=== PATIENT | male | born 1975 | race Caucasian/White ===

== ENCOUNTER 2017-05-28 06:18 | Emergency (ER) | payer OTHER ==
[~2017-05-28] VITALS: Ht 177.8 cm; Wt 104.3 kg
[2017-05-28 06:26] VITALS: BP 177/98
[2017-05-28] MEDS ORDERED: 0.9 % SODIUM CHLORIDE 10 ML DISP.SYRIN. IV PRN (06:45)
[2017-05-28] MEDS ORDERED: ONDANSETRON PF 4 MG/2 ML VIAL. IV ONE (06:45)
[2017-05-28] MEDS ORDERED: IV NORMAL SALINE 1000ML BAG 1,000 ML IV SCH (06:45)
[2017-05-28 06:48] LABS: BASO % 1 % (0-3); EOS % 2 % (0-3); HEMATOCRIT 48.5 % (39.0-53.0); HEMOGLOBIN 16.6 g/dL (13.0-17.5); LYMPH # 1.6 x10^3/uL (1.0-4.8); LYMPH % 35 % (24-48); MEAN CORPUSCULAR HEMOGLOBIN 31 pg (25-35); MEAN CORPUSCULAR HGB CONC 34 g/dL (31-37); MEAN CORPUSCULAR VOLUME 91 fL (79-100); MONO % 12 % (0-9); NEUT % 51 % (31-73); PLATELET COUNT 189 x10^3/uL (140-400); RED BLOOD COUNT 5.31 x10^6/uL (4.30-5.70); RED CELL DISTRIBUTION WIDTH 13.5 % (11.5-14.5); WHITE BLOOD COUNT 4.7 x10^3/uL (4.0-11.0)
--- NOTE | 2017-05-28 06:52 | PHYS DOC ---
Past Medical History Past Medical History: No Pertinent History, Hypertension Past Surgical History: No Surgical History Alcohol Use: Occasionally Drug Use: None Adult General Chief Complaint Chief Complaint: ABDOMINAL PAIN [facility] HPI Patient is a 42 year old male who presents with abdominal pain. This pain began intermittently but 6 weeks ago he noted increasing with food over the left upper quadrant. Today his pain is gotten progressively worse that began at 10 PM last night after drinking and eating with the body. Pain is described as a dull ache in the left upper quadrant with radiation to the left flank. Described as 7 of 1010 of 10 with food. It does not cause any vomiting or nausea or diarrhea. It does not cause any fevers, cough, chills, chest pain, shortness of breath or other symptoms. He does have pain is worse with food breathing in, pressure over his abdomen. He denies any trauma, travel, antibiotics or other symptoms. He denies any UTI symptoms or night sweats, weight loss or blood in his urine. Patient with left upper quadrant abdominal pain which may represent either pancreatitis, peptic ulcer disease, gastritis, small bowel obstruction, large bowel resection, diverticulitis, or possible intussusception. We will proceed with abdominal pain workup to include fluids, antiemetics, pain medications, CT abdomen and pelvis with IV contrast. Urinalysis as well as troponin and EKG and chest x-ray. Review of Systems Review of Systems Constitutional: Denies fever he does complains of occasional chill Eyes: Denies change in visual acuity, redness, or eye pain [] HENT: Denies nasal congestion or sore throat [] Respiratory: Denies cough or shortness of breath [] Cardiovascular: No additional information not addressed in HPI [] GI: He does complain of abdominal pain without vomiting or diarrhea but occasional nauseous experience. : Denies dysuria or hematuria [] Musculoskeletal: Denies back pain or joint pain [] Integument: Denies rash or skin lesions [] Neurologic: Denies headache, focal weakness or sensory changes [] Endocrine: Denies polyuria or polydipsia [] Current Medications Current Medications Current Medications Medications (Trade) Dose Ordered Sig/Lonnie Start Time Stop Time Status Last Admin Dose Admin Hydromorphone HCl (Dilaudid) 1 mg PRN Q15MIN PRN 05/28/17 06:45 05/29/17 06:44 05/28/17 06:59 1 MG Info (Do NOT chart on this entry -- for MONITORING) 1 each PRN DAILY PRN 05/28/17 07:15 05/30/17 07:14 Iohexol (Omnipaque 300 Mg/ml) 75 ml 1X ONCE 05/28/17 07:15 05/28/17 07:16 DC Ondansetron HCl (Zofran) 4 mg 1X ONCE 05/28/17 06:45 05/28/17 06:46 DC 05/28/17 06:59 4 MG Sodium Chloride (Normal Saline Flush) 10 ml QSHIFT PRN 05/28/17 06:45 05/28/17 06:59 10 ML Allergies Allergies Allergies Coded Allergies Type Severity Reaction Last Updated Verified No Known Drug Allergies 05/28/17 No Physical Exam Physical Exam Vitals noted to be hypertensive Constitutional: Well developed, well nourished, is in pain of 10 of 10 as he is laying quietly on the bed. HENT: Normocephalic, atraumatic, bilateral external ears normal, oropharynx moist, no oral exudates, nose normal. [] Eyes: PERRLA, EOMI, conjunctiva normal, no discharge. [] Neck: Normal range of motion, no tenderness, supple, no stridor. [] Cardiovascular:Heart rate regular rhythm, no murmur [] Lungs & Thorax: Bilateral breath sounds clear to auscultation [] Abdomen: Bowel sounds normal, soft abdomen with tenderness to palpation left upper quadrant with no masses, no guarding or rebound organomegaly. Skin: Warm, dry, no erythema, no rash. [] Back: No tenderness, no CVA tenderness. [] Extremities: No tenderness, no cyanosis, no clubbing, ROM intact, no edema. [] Neurologic: Alert and oriented X 3, normal motor function, normal sensory function, no focal deficits noted. [] Psychologic: Affect normal, judgement normal, mood normal. [] Current Patient Data Vital Signs Vital Signs Date Time Temp Pulse Resp B/P (MAP) Pulse Ox O2 Delivery O2 Flow Rate FiO2 05/28/17 06:26 97.7 66 18 177/98 (124) 94 Room Air 97.7 Lab Values Laboratory Tests Test 05/28/17 06:40 05/28/17 06:45 White Blood Count 4.7 x10^3/uL (4.0-11.0) Red Blood Count 5.31 x10^6/uL (4.30-5.70) Hemoglobin 16.6 g/dL (13.0-17.5) Hematocrit 48.5 % (39.0-53.0) Mean Corpuscular Volume 91 fL (79-100) Mean Corpuscular Hemoglobin 31 pg (25-35) Mean Corpuscular Hemoglobin Concent 34 g/dL (31-37) Red Cell Distribution Width 13.5 % (11.5-14.5) Platelet Count 189 x10^3/uL (140-400) Neutrophils (%) (Auto) 51 % (31-73) Lymphocytes (%) (Auto) 35 % (24-48) Monocytes (%) (Auto) 12 % (0-9) H Eosinophils (%) (Auto) 2 % (0-3) Basophils (%) (Auto) 1 % (0-3) Neutrophils # (Auto) 2.4 x10^3uL (1.8-7.7) Lymphocytes # (Auto) 1.6 x10^3/uL (1.0-4.8) Monocytes # (Auto) 0.5 x10^3/uL (0.0-1.1) Eosinophils # (Auto) 0.1 x10^3/uL (0.0-0.7) Basophils # (Auto) 0.0 x10^3/uL (0.0-0.2) Sodium Level 142 mmol/L (136-145) Potassium Level 4.5 mmol/L (3.5-5.1) Chloride Level 106 mmol/L (98-107) Carbon Dioxide Level 27 mmol/L (21-32) Anion Gap 9 (6-14) Blood Urea Nitrogen 14 mg/dL (8-26) Creatinine 1.1 mg/dL (0.7-1.3) Estimated GFR (Cockcroft-Gault) 73.4 Glucose Level 108 mg/dL (70-99) H Calcium Level 8.7 mg/dL (8.5-10.1) Magnesium Level 2.1 mg/dL (1.8-2.4) Creatine Kinase 355 U/L (39-308) H Creatine Kinase MB (Mass) 2.5 ng/mL (0.0-3.6) Creatine Kinase MB Relative Index 0.7 % (0-4) Troponin I Quantitative < 0.017 ng/mL (0.000-0.055) Lipase 99 U/L (73-393) Ethyl Alcohol Level < 10 mg/dL (0-10) Urine Collection Type Unknown Urine Color Yellow Urine Clarity Cloudy Urine pH 7.0 Urine Specific [place] 1.025 Urine Protein 100 mg/dL (NEG-TRACE) Urine Glucose (UA) Negative mg/dL (NEG) Urine Ketones (Stick) Trace mg/dL (NEG) Urine Blood Negative (NEG) Urine Nitrite Negative (NEG) Urine Bilirubin Negative (NEG) Urine Urobilinogen Dipstick 1.0 mg/dL (0.2 mg/dL) Urine Leukocyte Esterase Negative (NEG) Urine RBC 1-2 /HPF (0-2) Urine WBC 1-4 /HPF (0-4) Urine Squamous Epithelial Cells Mod /LPF Urine Bacteria Few /HPF (0-FEW) Urine Mucus Marked /LPF Laboratory Tests 05/28/17 06:40 Laboratory Tests 05/28/17 06:40 EKG EKG [] EKG timed 0 6:57 AM 05/28/[address] Tomlinson demonstrated normal sinus rhythm heart rate of 65 with occasional PAC there is no ST segment or T-wave inversion in concerning for acute coronary event. Radiology/Procedures Radiology/Procedures [] [facility] [address] [place] [address] IMAGING REPORT Signed PATIENT: PAULINA SOLORIO Frank ACCOUNT: [id number] : 1975 LOCATION: ER AGE: 42 SEX: M EXAM STATUS: REG ER ORD. PHYSICIAN: JASON TOMLINSON MD REASON: chest pain; ABD PAIN PROCEDURE: PORTABLE CHEST 1V Portable chest, 05/28/2017: History: Chest and abdominal pain The heart size and pulmonary vascularity are normal. The lungs are clear. There is no evidence of pleural fluid. IMPRESSION: No acute cardiopulmonary abnormality is detected. DICTATED and SIGNED BY: REHANA HOLT MD DATE: 05/28/17 0703 CC: YORDAN MATAMOROS MD; JASON TOMLINSON MD ~ IMAGING REPORT Signed PATIENT: PAULINA SOLORIO ACCOUNT: [id number] : 1975 LOCATION: ER AGE: 42 SEX: M EXAM STATUS: REG ER ORD. PHYSICIAN: JASON TOMLINSON MD REASON: chest pain left upper quadrant abdominal pain PROCEDURE: CT ABD PELV W/ IV CONTRST ONLY CT of the abdomen and pelvis with contrast, 05/28/2017: History: Left-sided abdominal pain Multidetector CT imaging was performed following an IV bolus injection of iodinated contrast material. No oral contrast material was administered as requested. There is mild atelectasis and/or scarring in the lung bases. The hepatic enhancement is mildly heterogeneous in a pattern raising the possibility of patchy fatty infiltration. No discrete hepatic mass is seen. The gallbladder is unremarkable. No pancreatic abnormality is detected. The spleen is of normal size. There are calcified splenic granulomata. A tiny 4 mm low-density lesion in the posterior aspect of the left kidney is too small to definitively characterize, but is probably a cyst. The kidneys show no evidence of obstruction. No adrenal abnormality is detected. The abdominal aorta is unremarkable. No abdominal or pelvic adenopathy is seen. Several small calcified lymph nodes are noted in the portacaval region. Prostatic calcifications are noted. Numerous lower pelvic calcifications are compatible with phleboliths. No urinary tract calculus is evident. The bowel loops are not dilated. The appendix is at the upper limits of normal in size measuring 10 to 11 mm in width. No periappendiceal inflammation or abnormal enhancement is evident. No free fluid or free air is evident in the abdomen or pelvis. IMPRESSION: 1. Mild patchy fatty infiltration of the liver. 2. The appendix is at the upper limits of normal in size without evidence of inflammation. 3. Probable tiny left renal cyst. 4. No acute abdominal or pelvic abnormality is detected. Course & Med Decision Making Course & Med Decision Making Pertinent Labs and Imaging studies reviewed. (See chart for details). Patient's nursing notes, vital signs, laboratory work as been returned and a chest x-ray Emergency diagnosis for abdominal pain includes but not limited to peptic ulcer disease, dyspepsia, esophageal spasm, cholelithiasis, cholecystitis, ascending cholangitis, disease of the pancreas, small bowel obstruction, bowel perforation , diverticulosis, diverticulosis, intussusception, appendicitis, kidney stone, UTI, pyonephritis, sphincter OD problems. He had a CT abdomen and pelvis completed urinalysis and CBC, lipase, troponin, chest x-ray, EKG Is now 7:54 AM Patient tells me that their symptoms given during CC are improved. We reviewed labs reports with patient and any family at bedside. At this point EKG chest x-ray troponin lipase CBC and urinalysis are unremarkable. Patient's been reevaluated by me who says that his pain is markedly improved with the therapies provided. I'm worried mostly based on his symptoms and his presentation that he is suffering from peptic ulcer disease. I believe this is more of a proximal gastric ulcer given the timetable of food related pain. No treat his dyspepsia initially with a proton pump inhibitor for at least 6-8 weeks as we try to follow-up with his primary care doctor and GI for possible endoscopy. At this point still pending CT abdomen and pelvis to rule out perforation as well as other intra-abdominal catastrophes. Is now 823 CT scan results return. Patient tells me that their symptoms given during CC are improved. We reviewed labs and radiology reports with patient and any family at bedside. Family and I discussed discussed results of the CT scan and follow-up instructions for GI evaluation with endoscopy planned believe placed on a proton pump inhibitor some breakthrough pain and Carafate. We'll discourage the patient from drinking alcohol again coffee or fatty foods until seen by GI. Impression: Dyspepsia, likely peptic ulcer disease, Disposition: PCP referral for follow-up to GI for endoscopy. We will treat empirically with a proton pump inhibitor Carafate and pain medications. [] Dragon Disclaimer Dragon Disclaimer This electronic medical record was generated, in whole or in part, using a voice recognition dictation system. Departure Departure Impression: Primary Impression: Abdominal pain Additional Impressions: Dyspepsia Nausea Disposition: HOME, SELF-CARE Condition: IMPROVED Referrals: YORDAN MATAMOROS MD (PCP) Patient Instructions: Abdominal Pain, Diet for Peptic Ulcer Disease, Peptic Ulcer Disease Additional Instructions: He is return for any new or increasing symptoms, nausea and vomiting with blood in her vomit or blood in the stool. If Any fevers greater than 102.2 with increasing abdominal pain in the right lower quadrant please also return immediately. At this point I suggest you do not drink or eat alcoholic beverages or fatty foods that may exacerbate her symptoms. Please do not use NSAIDs like Motrin or ibuprofen as they may also increase your symptoms. I would advise a follow-up U primary care doctor for referral to GI physician for endoscopy. Please return for any questions or concerns or might have Scripts Ondansetron (ZOFRAN ODT) 4 Mg Tab.rapdis 4 MG PO BID Y for NAUSEA/VOMITING for 5 Days, #10 TAB Prov: JASON TOMLINSON MD 05/28/17 Sucralfate (CARAFATE) 1 Gm Tablet 1 TAB PO QID, #60 TAB 1 Refill Prov: JASON TOMLINSON MD 05/28/17 Pantoprazole Sodium (PROTONIX) 40 Mg Tablet.dr 1 TAB PO DAILY, #30 TAB 5 Refills Prov: JASON TOMLINSON MD 05/28/17 Hydrocodone Bit/Acetaminophen (HYDROCODONE-APAP 5-325 ) 1 Each Tablet 1-2 TAB PO PRN Q6HRS Y for PAIN for 5 Days, #10 TAB 0 Refills Prov: JASON TOMLINSON MD 05/28/17 Problem Qualifiers JASON TOMLINSON MD May 28, 2017 06:52
[2017-05-28] MEDS: HYDROmorphone 2 MG/ML VIAL IV/SQ PRN ×2 (06:59→08:46)
[2017-05-28 07:08] LABS: CALCIUM 8.7 mg/dL (8.5-10.1); CREATININE 1.1 mg/dL (0.7-1.3); GFR 73.4; POTASSIUM 4.5 mmol/L (3.5-5.1)
--- NOTE | 2017-05-28 07:08 | RAD ---
Portable chest, 05/28/2017: History: Chest and abdominal pain The heart size and pulmonary vascularity are normal. The lungs are clear. There is no evidence of pleural fluid. IMPRESSION: No acute cardiopulmonary abnormality is detected.
[2017-05-28 07:10] LABS: MAGNESIUM 2.1 mg/dL (1.8-2.4)
[2017-05-28] MEDS ORDERED: CONTRAST GIVEN MC PRN (07:15)
[2017-05-28] MEDS ORDERED: IOHEXOL 300 MG/ML 75 ML VIAL IV ONE (07:15)
[2017-05-28 07:22] LABS: CKMB MASS 2.5 ng/mL (0.0-3.6)
[2017-05-28 07:29] LABS: BILIRUBIN,URINE NEGATIVE (NEG); GLUCOSE,URINE NEGATIVE (NEG); NITRITE,URINE NEGATIVE (NEG); PROTEIN,URINE 100 mg/dL (NEG-TRACE)
[2017-05-28 07:33] LABS: BACTERIA,URINE FEW /HPF (0-FEW); SQUAMOUS EPITHELIAL CELL,UR MOD /LPF
--- NOTE | 2017-05-28 08:08 | RAD ---
CT of the abdomen and pelvis with contrast, 05/28/2017: History: Left-sided abdominal pain Multidetector CT imaging was performed following an IV bolus injection of iodinated contrast material. No oral contrast material was administered as requested. There is mild atelectasis and/or scarring in the lung bases. The hepatic enhancement is mildly heterogeneous in a pattern raising the possibility of patchy fatty infiltration. No discrete hepatic mass is seen. The gallbladder is unremarkable. No pancreatic abnormality is detected. The spleen is of normal size. There are calcified splenic granulomata. A tiny 4 mm low-density lesion in the posterior aspect of the left kidney is too small to definitively characterize, but is probably a cyst. The kidneys show no evidence of obstruction. No adrenal abnormality is detected. The abdominal aorta is unremarkable. No abdominal or pelvic adenopathy is seen. Several small calcified lymph nodes are noted in the portacaval region. Prostatic calcifications are noted. Numerous lower pelvic calcifications are compatible with phleboliths. No urinary tract calculus is evident. The bowel loops are not dilated. The appendix is at the upper limits of normal in size measuring 10 to 11 mm in width. No periappendiceal inflammation or abnormal enhancement is evident. No free fluid or free air is evident in the abdomen or pelvis. IMPRESSION: 1. Mild patchy fatty infiltration of the liver. 2. The appendix is at the upper limits of normal in size without evidence of inflammation. 3. Probable tiny left renal cyst. 4. No acute abdominal or pelvic abnormality is detected. PQRS Compliance Statement: One or more of the following individualized dose reduction techniques were utilized for this examination: 1. Automated exposure control 2. Adjustment of the mA and/or kV according to patient size 3. Use of iterative reconstruction technique
--- NOTE | 2017-05-28 08:21 | EKG ---
[facility] [address] [place] [address] Test Date: 2017-05-28 Test Time: 06:57:38 Pat Name: PAULINA SOLORIO Department: Room: Gender: M Analysis Reporting Developer: : 1975 Requested By: JASON TOMLINSON Order Number: [id number] Reading MD: Mekhi Cooper Measurements Intervals [place] Rate: 65 P: 36 DC: 164 QRS: -10 QRSD: 86 T: 47 QT: 368 QTc: 383 Interpretive Statements SINUS RHYTHM ATRIAL PREMATURE COMPLEX(ES) LEFTWARD AXIS QRS(T) CONTOUR ABNORMALITY CANNOT RULE OUT ANTEROSEPTAL MYOCARDIAL DAMAGE RI6.01 Unconfirmed report No previous ECG available for comparison Electronically Signed On 05-28-2017 15:56:45 CDT by Mekhi Cooper
[2017-05-28] MEDS ORDERED: ONDA4TAB10 PO (08:28)
[2017-05-28] MEDS ORDERED: HYDR-2758 PO (08:28)
[2017-05-28] MEDS ORDERED: PANT40TA3 PO (08:28)
[2017-05-28] MEDS ORDERED: SUCR1TAB35 PO (08:28)
== END 2017-05-28 08:38 | disposition home or self-care (01) ==
LOC: ER 06:18
DX: R10.12 Left upper quadrant pain (principal); R10.13 Epigastric pain; R11.0 Nausea; I10 Essential (primary) hypertension
CPT/HCPCS: 36415; 71010; 74177; 80048; 81001; 82553; 83690; 83735; 84484; 85027; 93005; 96361; 96374; 96375; 96376; 99285; G0480; J1170; J2405; J7030; Q9967; 80320

== ENCOUNTER 2019-06-13 06:28 | Emergency (ER) | payer MEDICARE, OTHER ==
[~2019-06-13] VITALS: Ht 177.8 cm; Wt 104.3 kg
[~2019-06-13 06:28] MED LIST: HYDR-2761 PO; LORA10TA68 PO; METO25TA4 PO; OMEG1CAP27 PO; OMEP20CA10 PO; ONDA4TAB10 PO; PANT40TA77 PO; SUCR1TAB35 PO
[2019-06-13] MEDS ORDERED: KETOROLAC 30 MG/ML VIAL. IV ONE (07:00)
[2019-06-13] MEDS ORDERED: IV NORMAL SALINE 1000ML BAG 1,000 ML IV ONE (07:00)
[2019-06-13] MEDS ORDERED: ONDANSETRON PF 4 MG/2 ML VIAL. IV ONE (07:00)
[2019-06-13 07:22] LABS: BASO % 0 % (0-3); EOS % 0 % (0-3); HEMATOCRIT 49.8 % (39.0-53.0); HEMOGLOBIN 17.1 g/dL (13.0-17.5); LYMPH # 0.4 x10^3/uL (1.0-4.8); LYMPH % 17 % (24-48); MEAN CORPUSCULAR HEMOGLOBIN 32 pg (25-35); MEAN CORPUSCULAR HGB CONC 34 g/dL (31-37); MEAN CORPUSCULAR VOLUME 92 fL (79-100); MONO # 0.1 x10^3/uL (0.0-1.1); MONO % 5 % (0-9); NEUT # 1.6 x10^3/uL (1.8-7.7); NEUT % 78 % (31-73); PLATELET COUNT 102 x10^3/uL (140-400); RED CELL DISTRIBUTION WIDTH 15.8 % (11.5-14.5)
[2019-06-13 07:25] LABS: CALCIUM 8.5 mg/dL (8.5-10.1); CREATININE 1.2 mg/dL (0.7-1.3); GFR 65.8; POTASSIUM 4.2 mmol/L (3.5-5.1)
[2019-06-13 07:30] LABS: ALBUMIN 3.5 g/dL (3.4-5.0); ALBUMIN/GLOBULIN RATIO 0.9 (1.0-1.7); TOTAL BILIRUBIN 0.8 mg/dL (0.2-1.0); TOTAL PROTEIN 7.3 g/dL (6.4-8.2)
--- NOTE | 2019-06-13 07:35 | RAD ---
PROCEDURE: CHEST AP ONLY CLINICAL INDICATION: Fever for 4 days. COMPARISON: 05/28/2017. FINDINGS: No pneumothorax identified. Cardiac and mediastinal contours unremarkable. No pulmonary consolidation or acute airspace disease. No acute osseous abnormalities identified. IMPRESSION: No pulmonary consolidation or acute airspace disease. Electronically signed by: Kirill Todd DO (06/13/2019 7:32 AM) [facility]
[2019-06-13 07:40] LABS: INFLUENZA A PATIENT NEGATIVE (NEGATIVE); INFLUENZA B PATIENT NEGATIVE (NEGATIVE)
[2019-06-13] MEDS ORDERED: IOHEXOL 300 MG/ML 100ML VIAL. IV ONE (07:45)
--- NOTE | 2019-06-13 07:57 | PHYS DOC ---
Past Medical History Past Medical History: GERD, Hypertension Past Surgical History: Appendectomy Alcohol Use: Occasionally Drug Use: None Adult General Chief Complaint Chief Complaint: ABDOMINAL PAIN HPI HPI 44-year-old otherwise healthy male presents with a four-day history of fever. Patient states he has had some low-grade subjective fevers at home and takes Tylenol or and/or Motrin to get them to break. Patient denies any headache or neck pain. He's had no altered mental status. He denies any shortness of breath cough congestion. He denies any hemoptysis. He does state that he's had some nausea and vomiting. He's had some abdominal cramping. He did state that he had some low abdominal discomfort. He has not had any dysuria or gross hematuria. He is not had any tick bites or rashes. He's not been in the [place] at all. He denies any sore throat.[] Review of Systems Review of Systems Constitutional: Per history of present illness[] Eyes: Denies change in visual acuity, redness, or eye pain [] HENT: Denies nasal congestion or sore throat [] Respiratory: Denies cough or shortness of breath [] Cardiovascular: No additional information not addressed in HPI [] GI: Per history of present illness[] : Denies dysuria or hematuria [] Musculoskeletal: Denies back pain or joint pain [] Integument: Denies rash or skin lesions [] Neurologic: Denies headache, focal weakness or sensory changes [] Endocrine: Denies polyuria or polydipsia [] All other systems were reviewed and found to be within normal limits, except as documented in this note. Current Medications Current Medications Current Medications Medications (Trade) Dose Ordered Sig/Olnnie Start Time Stop Time Status Last Admin Dose Admin Iohexol (Omnipaque 300 Mg/ml) 75 ml 1X ONCE 06/13/19 07:45 06/13/19 07:46 DC Ketorolac Tromethamine (Toradol 30mg Vial) 30 mg 1X ONCE 06/13/19 07:00 06/13/19 07:02 DC 06/13/19 07:09 30 MG Ondansetron HCl (Zofran) 4 mg 1X ONCE 06/13/19 07:00 06/13/19 07:02 DC 06/13/19 07:08 4 MG Sodium Chloride 1,000 ml @ 1,000 mls/hr 1X ONCE 06/13/19 07:00 06/13/19 07:59 DC 06/13/19 07:08 1,000 MLS/HR Allergies Allergies Allergies Coded Allergies Type Severity Reaction Last Updated Verified No Known Drug Allergies 05/28/17 No Physical Exam Physical Exam Constitutional: Well developed, well nourished, no acute distress, non-toxic herbie earance. [] HENT: Normocephalic, atraumatic, bilateral external ears normal, oropharynx moist, no oral exudates, nose normal. [] Eyes: PERRLA, EOMI, conjunctiva normal, no discharge. [] Neck: Normal range of motion, no tenderness, supple, no stridor. [] Cardiovascular:Heart rate regular rhythm, no murmur [] Lungs & Thorax: Bilateral breath sounds clear to auscultation [] Abdomen: Bowel sounds normal, soft, no tenderness, no masses, no pulsatile masses. [] Skin: Warm, dry, no erythema, no rash. [] Back: No tenderness, no CVA tenderness. [] Extremities: No tenderness, no cyanosis, no clubbing, ROM intact, no edema. [] Neurologic: Alert and oriented X 3, normal motor function, normal sensory function, no focal deficits noted. [] Psychologic: Affect normal, judgement normal, mood normal. [] Current Patient Data Vital Signs Vital Signs Date Time Temp Pulse Resp B/P (MAP) Pulse Ox O2 Delivery O2 Flow Rate FiO2 06/13/19 10:16 94 20 128/60 (82) 94 Room Air 06/13/19 06:40 98.3 98.3 Lab Values Laboratory Tests Test 06/13/19 06:52 06/13/19 07:07 06/13/19 09:49 White Blood Count 2.0 x10^3/uL (4.0-11.0) L Red Blood Count 5.40 x10^6/uL (4.30-5.70) Hemoglobin 17.1 g/dL (13.0-17.5) Hematocrit 49.8 % (39.0-53.0) Mean Corpuscular Volume 92 fL (79-100) Mean Corpuscular Hemoglobin 32 pg (25-35) Mean Corpuscular Hemoglobin Concent 34 g/dL (31-37) Red Cell Distribution Width 15.8 % (11.5-14.5) H Platelet Count 102 x10^3/uL (140-400) L Neutrophils (%) (Auto) 78 % (31-73) H Lymphocytes (%) (Auto) 17 % (24-48) L Monocytes (%) (Auto) 5 % (0-9) Eosinophils (%) (Auto) 0 % (0-3) Basophils (%) (Auto) 0 % (0-3) Neutrophils # (Auto) 1.6 x10^3/uL (1.8-7.7) L Lymphocytes # (Auto) 0.4 x10^3/uL (1.0-4.8) L Monocytes # (Auto) 0.1 x10^3/uL (0.0-1.1) Eosinophils # (Auto) 0.0 x10^3/uL (0.0-0.7) Basophils # (Auto) 0.0 x10^3/uL (0.0-0.2) Platelet Estimate Pending Sodium Level 135 mmol/L (136-145) L Potassium Level 4.2 mmol/L (3.5-5.1) Chloride Level 99 mmol/L (98-107) Carbon Dioxide Level 27 mmol/L (21-32) Anion Gap 9 (6-14) Blood Urea Nitrogen 15 mg/dL (8-26) Creatinine 1.2 mg/dL (0.7-1.3) Estimated GFR (Cockcroft-Gault) 65.8 BUN/Creatinine Ratio 13 (6-20) Glucose Level 119 mg/dL (70-99) H Lactic Acid Level 1.0 mmol/L (0.4-2.0) Calcium Level 8.5 mg/dL (8.5-10.1) Total Bilirubin 0.8 mg/dL (0.2-1.0) Aspartate Amino Transferase (AST) 122 U/L (15-37) H Alanine Aminotransferase (ALT) 120 U/L (16-63) H Alkaline Phosphatase 65 U/L (46-116) Total Protein 7.3 g/dL (6.4-8.2) Albumin 3.5 g/dL (3.4-5.0) Albumin/Globulin Ratio 0.9 (1.0-1.7) L Influenza Type A Antigen Negative (NEGATIVE) Influenza Type B Antigen Negative (NEGATIVE) Urine Collection Type Unknown Urine Color Perla Urine Clarity Clear Urine pH 6.0 Urine Specific [place] >=1.030 Urine Protein 100 mg/dL (NEG-TRACE) Urine Glucose (UA) Negative mg/dL (NEG) Urine Ketones (Stick) Trace mg/dL (NEG) Urine Blood Negative (NEG) Urine Nitrite Negative (NEG) Urine Bilirubin Small (NEG) Urine Urobilinogen Dipstick 2.0 mg/dL (0.2 mg/dL) Urine Leukocyte Esterase Negative (NEG) Urine RBC 0 /HPF (0-2) Urine WBC 0 /HPF (0-4) Urine Squamous Epithelial Cells Few /LPF Urine Bacteria 0 /HPF (0-FEW) Laboratory Tests 06/13/19 06:52 Laboratory Tests 06/13/19 06:52 EKG EKG [] Radiology/Procedures Radiology/Procedures []REASON: fever, abd pain PROCEDURE: CT ABD PELV W/ IV CONTRST ONLY PQRS Compliance statement: One or more of the following individualized dose reduction techniques were utilized for this examination: 1. Automated exposure control. 2. Adjustment of the mA and/or kV according to patient size. 3. Use of iterative reconstruction technique. Indication:Fever. Abdominal pain. TECHNIQUE: CT abdomen and pelvis with IV contrast with multiplanar reformats. COMPARISON: 04/01/2018. FINDINGS: Heart is normal in size. No pericardial or pleural effusion. Mild right basilar subsegmental atelectasis. Hepatic steatosis. No focal hepatic lesion. Spleen is within normal limits. No radiopaque gallstones. Pancreas is within normal limits. Adrenal glands demonstrate no nodularity. No nephrolithiasis or hydronephrosis. No enlarged retroperitoneal or pelvic adenopathy. No free pelvic fluid or ascites. The prostate and seminal vesicles show no large mass. No bowel obstruction. Status post appendectomy. No pneumoperitoneum. Urinary bladder demonstrates no radiopaque stones. No suspicious bony lesion. IMPRESSION: No acute findings. Impressions: PROCEDURE: CHEST AP ONLY PROCEDURE: CHEST AP ONLY CLINICAL INDICATION: Fever for 4 days. COMPARISON: 05/28/2017. FINDINGS: No pneumothorax identified. Cardiac and mediastinal contours unremarkable. No pulmonary consolidation or acute airspace disease. No acute osseous abnormalities identified. IMPRESSION: No pulmonary consolidation or acute airspace disease. Course & Med Decision Making Course & Med Decision Making Pertinent Labs and Imaging studies reviewed. (See chart for details) [ED course: Evaluation reveals a 44-year-old male that does not appear particularly ill. His physical exam was entirely unremarkable. His laboratory studies including x-ray and CT scan were also unrevealing. I'll provide the patient with some Zofran to take for nausea. I did inform them that this is likely a viral type illness. I did let him know that if he notices a rash or any of his symptoms intensified to return to the emergency department immediately for further evaluation.] Dragon Disclaimer Dragon Disclaimer This electronic medical record was generated, in whole or in part, using a voice recognition dictation system. Departure Departure Impression: Primary Impression: Fever Additional Impression: Nausea Disposition: HOME, SELF-CARE Condition: STABLE Referrals: YORDAN MATAMOROS MD (PCP) Patient Instructions: Fever Additional Instructions: Follow with Dr. Ponce this week for recheck. Return to the emergency with any new or concerning symptoms Scripts Ondansetron (ONDANSETRON ODT) 4 Mg Tab.rapdis 1 TAB PO PRN Q6-8HRS for VOMITING, #16 TAB Prov: NARGIS ORTEZ DO 06/13/19 Problem Qualifiers Primary Impression: Fever Fever type: unspecified Qualified Codes: R50.9 - Fever, unspecified NARGIS ORTEZ DO Jun 13, 2019 07:56
--- NOTE | 2019-06-13 08:15 | RAD ---
PQRS Compliance statement: One or more of the following individualized dose reduction techniques were utilized for this examination: 1. Automated exposure control. 2. Adjustment of the mA and/or kV according to patient size. 3. Use of iterative reconstruction technique. Indication:Fever. Abdominal pain. TECHNIQUE: CT abdomen and pelvis with IV contrast with multiplanar reformats. COMPARISON: 04/01/2018. FINDINGS: Heart is normal in size. No pericardial or pleural effusion. Mild right basilar subsegmental atelectasis. Hepatic steatosis. No focal hepatic lesion. Spleen is within normal limits. No radiopaque gallstones. Pancreas is within normal limits. Adrenal glands demonstrate no nodularity. No nephrolithiasis or hydronephrosis. No enlarged retroperitoneal or pelvic adenopathy. No free pelvic fluid or ascites. The prostate and seminal vesicles show no large mass. No bowel obstruction. Status post appendectomy. No pneumoperitoneum. Urinary bladder demonstrates no radiopaque stones. No suspicious bony lesion. IMPRESSION: No acute findings. Electronically signed by: Kirill Todd DO (06/13/2019 8:12 AM) [facility]
[2019-06-13 09:58] LABS: BILIRUBIN,URINE SMALL (NEG); CLARITY,URINE CLEAR; COLOR,URINE AMBER; NITRITE,URINE NEGATIVE (NEG); PROTEIN,URINE 100 mg/dL (NEG-TRACE)
[2019-06-13 10:12] LABS: BACTERIA,URINE 0 /HPF (0-FEW); RBC,URINE 0 /HPF (0-2); SQUAMOUS EPITHELIAL CELL,UR FEW /LPF; WBC,URINE 0 /HPF (0-4)
[2019-06-13 10:16] VITALS: BP 128/60
[2019-06-13] MEDS ORDERED: ONDA4TAB12 PO (10:56)
== END 2019-06-13 11:08 | disposition home or self-care (01) ==
LOC: ER 06:28
DX: R50.9 Fever, unspecified (principal); R11.2 Nausea with vomiting, unspecified; R10.30 Lower abdominal pain, unspecified; I10 Essential (primary) hypertension; K21.9 Gastro-esophageal reflux disease without esophagitis; Z90.89 Acquired absence of other organs
CPT/HCPCS: 36415; 71045; 74177; 80053; 81001; 83605; 85025; 87040; 87804; 96361; 96374; 96375; 99285; J1885; J2405; J7030